=== PATIENT | female | born 1990 | race Asian ===

== ENCOUNTER 2018-05-24 15:48 | Emergency (ER) | payer BC ==
[~2018-05-24] VITALS: Ht 167.6 cm; Wt 74.8 kg
[2018-05-24 15:54] VITALS: BP_SYST 137
--- NOTE | 2018-05-24 15:57 | NUR ---
Patient to ER bed 07 to gown for evaluation. Side rails up.
--- NOTE | 2018-05-24 16:00 | NUR ---
Patient brought in by co-worker complaining of left flank pain starting this morning with nausea and one episode of non bloody emesis. Patient reports she is 10 weeks and is a . Pain 8/10. No other complaints/injuries per patient or as noted. Will continue to monitor.
--- NOTE | 2018-05-24 16:10 | NUR ---
ER Dr. Cramer at bedside examining patient.
--- NOTE | 2018-05-24 16:13 | NUR ---
# 20 gauge angiocath placed to Right AC. Use of asceptic technique. Opsite placed over site. Blood return noted. Blood for lab drawn from site. Flushed with 10 cc of normal saline. No evidence of infiltration noted. Patient tolerated well.
[2018-05-24] MEDS ORDERED: ONDANSETRON HCL 4 MG/2 ML VIAL IVP ONE ×2 (16:15→17:45)
--- NOTE | 2018-05-24 16:19 | NUR ---
Medicated per MD orders. Will cont to monitor
[2018-05-24 16:28] LABS: BASOPHILS # (AUTO) 0.1 K/uL (0.0-0.2); BASOPHILS % (AUTO) 0.8 % (0.0-2.0); EOSINOPHILS # (AUTO) 0.1 K/uL (0.0-0.4); EOSINOPHILS % (AUTO) 0.7 % (0.0-4.0); HEMATOCRIT 42.1 % (36-48); HEMOGLOBIN 14.1 g/dL (12.0-16.0); LYMPHOCYTES # (AUTO) 2.4 K/uL (1.0-5.5); LYMPHOCYTES % (AUTO) 29.8 % (20.5-51.5); MEAN CORPUSCULAR HEMOGLOBIN 29 pg (27-31); MEAN CORPUSCULAR HGB CONC 33 % (32-36); MEAN CORPUSCULAR VOLUME 86 fL (79.0-98.0); MONOCYTES # (AUTO) 0.5 K/uL (0.0-1.0); MONOCYTES % (AUTO) 6.5 % (1.7-9.3); NEUTROPHILS # (AUTO) 4.8 K/uL (1.8-7.7); NEUTROPHILS % (AUTO) 62.2 % (40.0-70.0); PLATELET COUNT (AUTO) 217 K/uL (130-430); RED BLOOD CELL COUNT(AUTO) 4.91 MIL/uL (4.2-6.2); RED CELL DISTRIBUTION WIDTH 12.6 % (9.0-15.0); WHITE BLOOD COUNT (AUTO) 7.9 K/uL (4.8-10.8)
--- NOTE | 2018-05-24 16:29 | NUR ---
[employer] Supervisor at bedside drawing ABO/RH. Patient tolerating well.
[2018-05-24 16:37] LABS: CALCIUM 9.3 mg/dL (8.4-11.0); CREATININE 0.7 mg/dL (0.55-1.30); POTASSIUM 3.1 mmol/L (3.5-5.1)
[2018-05-24] MEDS ORDERED: MORPHINE 4 MG/ML INJ. SYRINGE IVP ONE ×2 (16:45→18:00)
--- NOTE | 2018-05-24 17:02 | NUR ---
Ultrasound at bedside.
[2018-05-24 17:03] LABS: ALBUMIN 3.6 g/dL (3.4-4.8); TOTAL BILIRUBIN 0.3 mg/dL (0.0-1.0)
--- NOTE | 2018-05-24 17:22 | NUR ---
Note liliam in EDM - 05/24/18 at 1806 by [email or web address] JAMA SHELBY [] at bedside examining patient.Patient reports pain to left flank. Rates pain 03/16. Md notified.
--- NOTE | 2018-05-24 17:22 | NUR ---
Patient reports pain to left flank. Rates pain 8/10. Md notified.
--- NOTE | 2018-05-24 17:47 | NUR ---
Patient refusing morphine and zofran at this time. Pain 5. Patient states she doesn't want to over medicate the baby. notified.
[2018-05-24 17:58] LABS: BILIRUBIN,URINE NEGATIVE (NEGATIVE); BLOOD, URINE 3+ (NEGATIVE); CLARITY/URINE CLEAR (CLEAR); COLOR,URINE YELLOW (YELLOW); GLUCOSE,URINE NEGATIVE (NEGATIVE); KETONES,URINE 3+ (NEGATIVE); LEUKOCYTE ESTERASE ,URINE TRACE (NEGATIVE); NITRITE, URINE NEGATIVE (NEGATIVE); PROTEIN URINE 1+ (NEGATIVE); UROBILINOGEN,URINE 0.2 (0.2-1.0)
[2018-05-24 18:03] LABS: BACTERIA,URINE MODERATE /HPF (None Seen); RBC,URINE >100 /HPF (0-3)
--- NOTE | 2018-05-24 18:04 | NUR ---
ER at bedside re examining patient.
[2018-05-24] MEDS ORDERED: NITROFURANTOIN MONOHYD/M-CRYST 100 MG CAPSULE PO ONE (18:15)
[2018-05-24 18:52] VITALS: BP_SYST 128
--- NOTE | 2018-05-24 18:55 | NUR ---
Patient given written and verbal discharge instructions and verbalizes understanding. ER MD discussed with patient the results and treatment provided. Patient in stable condition. ID arm band removed. IV catheter removed intact and dressing applied, no active bleeding. Rx of Pyridium, [place], and Macrobid given. Patient educated on pain management and to follow up with PMD in 2-3 days. Pain Scale 0/10. Opportunity for questions provided and answered. Medication side effect fact sheet provided.
== END 2018-05-24 18:55 | disposition home or self-care (01) ==
LOC: SED 15:48
DX: O23.41 Unspecified infection of urinary tract in pregnancy, first trimester (principal); O26.891 Other specified pregnancy related conditions, first trimester; N20.1 Calculus of ureter; J45.909 Unspecified asthma, uncomplicated; R03.0 Elevated blood-pressure reading, without diagnosis of hypertension; Z3A.10 10 weeks gestation of pregnancy
CPT/HCPCS: 36415; 76770; 76805; 80053; 81000; 81025; 84702; 85025; 86900; 86901; 87086; 96374; 96375; 99285; J2270; J2405